=== PATIENT | female | born 1980 | race Caucasian/White ===

== ENCOUNTER → 2024-06-22 | Outpatient (CLI) | payer MEDICAID, SELFPAY ==
--- NOTE | 2024-06-22 14:00 | XR_ITS ---
Examination: Diagnostic digital mammography, unilateral, LEFT Computer aided detection 3-D breast Tomosynthesis, unilateral Date and time of exam: June 22, 2024 1334 hours INDICATIONS: Mammogram April 20, 2024 focal asymmetry inner left breast 5.1 cm from the nipple Technique: Nonmagnified MLO, CC views of the left breast have been obtained, reconstructed from 3-D Tomosynthesis images. R2 computer aided detection program utilized for evaluation of suspicious masses and/or abnormal calcifications. 3-D Tomosynthesis images obtained. Findings: The breast is heterogeneously dense, which may obscure small masses Focal asymmetry does persist inner left breast 5 cm from the nipple Impression: BI-RADS category 0: Incomplete: Need additional imaging evaluation, recommend left breast sonography follow-up
== END | disposition home or self-care (01) ==
LOC: CDIM 13:26
PROVIDERS: Referring Provider Nurse Practitioner; Visit Provider Nurse Practitioner
DX: R92.8 Other abnormal and inconclusive findings on diagnostic imaging of breast (principal)
CPT/HCPCS: 77061; 77065; G0279

== ENCOUNTER → 2024-07-05 | Outpatient (CLI) | payer MEDICAID, SELFPAY ==
--- NOTE | 2024-07-05 15:30 | XR_ITS ---
Examination: Breast ultrasound, unilateral, left complete Date and time of exam: July 05, 2024 1548 hours INDICATIONS: Left breast sonogram November 20, 2022 2:00 cyst 4 x 4 millimeter, mammogram June 22, 2024 focal asymmetry persists in the inner left breast 5 cm from the nipple Technique: Real-time alonzo scale ultrasonographic imaging performed left breast including all 4 quadrants as well as nipple retroareolar and axillary region. Findings: 2:00 cyst 7 x 7 mm No solid nodules IMPRESSION: BI-RADS Category 2: Benign findings
== END | disposition home or self-care (01) ==
PROVIDERS: PCP Nurse Practitioner; Referring Provider Nurse Practitioner; Visit Provider Nurse Practitioner
DX: R92.8 Other abnormal and inconclusive findings on diagnostic imaging of breast (principal); N60.02 Solitary cyst of left breast
CPT/HCPCS: 76641

== ENCOUNTER → 2025-01-30 | Outpatient (CLI) | payer MEDICAID, SELFPAY ==
--- NOTE | 2025-01-30 12:30 | XR_ITS ---
Examination: Retroperitoneal ultrasound, complete Technique: Multiple high resolution grayscale images of the retroperitoneum obtained, including kidneys and bladder. Exam date and time:January 30, 2025 at 1229 hours INDICATIONS: Stage III kidney disease diagnosis 3 months ago FINDINGS: Right kidney 11.6 cm renal cortex 2.3 cm Left kidney 11.4 cm cortex 2.3 cm 17 mm upper pole left renal cyst Moderate renal parenchymal scar formation No bladder mass or bladder calculi Bladder prevoid volume 876 cc postvoid Minor 9 cc IMPRESSION: Moderate bilateral renal parenchymal scar formation No hydronephrosis or renal calculi
== END | disposition home or self-care (01) ==
PROVIDERS: PCP Nurse Practitioner; Referring Provider Internal Medicine Nephrology; Visit Provider Internal Medicine Nephrology
DX: N28.89 Other specified disorders of kidney and ureter (principal)
CPT/HCPCS: 76770

== ENCOUNTER → 2025-06-06 | Outpatient (CLI) | payer MEDICAID, SELFPAY ==
--- NOTE | 2025-06-06 08:45 | XR_ITS ---
Examination: Screening digital mammography, bilateral Computer aided detection 3-D breast Tomosynthesis, bilateral Date and time of exam: 06/06/2025, 8:45 a.m. Comparisons: 06/22/2024 Indications: Screening Technique: Nonmagnified MLO, CC views of the breasts to been obtained, reconstructed from 3-D Tomosynthesis images. R2 computer aided detection program utilized for evaluation of suspicious masses and/or abnormal calcifications. 3-D Tomosynthesis images obtained. Technologist: Findings: The breasts are heterogeneously dense, which may obscure small masses. Focal asymmetry medial right breast, 7.5 cm from the nipple on the CC view. Otherwise, no evidence of abnormal masses or suspicious calcifications. Impression: Right focal asymmetry as above. Spot compression views and possible ultrasound evaluation recommended. BI-RADS category 0: Incomplete assassment; need additional imaging evaluation
== END | disposition home or self-care (01) ==
PROVIDERS: PCP Nurse Practitioner; Referring Provider Nurse Practitioner; Visit Provider Nurse Practitioner
DX: Z12.31 Encounter for screening mammogram for malignant neoplasm of breast (principal); N64.89 Other specified disorders of breast; R92.8 Other abnormal and inconclusive findings on diagnostic imaging of breast
CPT/HCPCS: 77063; 77067

== ENCOUNTER → 2025-06-27 | Outpatient (CLI) | payer MEDICAID, SELFPAY ==
--- NOTE | 2025-06-27 13:00 | XR_ITS ---
Study: Complete pelvic ultrasound. INDICATION: Family history of ovarian cancer. History of human papilloma virus. 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 40 images at 1313 hours 27 June 2025. FINDINGS: The uterus measures 8.1 x 3.2 x 3.8 cm and myometrium is unremarkable. The endometrial stripe measures 0.3 cm. There is no cul-de-sac fluid. The right ovary measures 2.8 x 1.5 x 1.9 cm and is perfused. There are no cysts or surrounding fluid. The left ovary measures 5.1 x 2.5 x 4.6 cm and is dominated by 2 cysts of 3.5 x 2.2 x 3.0 cm and 2.1 x 1.4 x 2.2 cm. The ovary is perfused. There is no surrounding fluid. IMPRESSION: 1. Normal uterus and right ovary. 2. 2 dominant cysts of the left ovary. No solid masses. 3. Consider monitoring for ovarian cancer with periodic CA125 assays in preference to ultrasound.
--- NOTE | 2025-06-27 13:00 | XR_ITS ---
Study: Abdomen ultrasound. INDICATION: Unintentional weight loss for 4 months. TECHNIQUE: Grayscale ultrasound with color flow Doppler. 79 images at 1321 hours 27 June 2025. FINDINGS: The gallbladder wall is thin and there are no contains stones or sludge. The common bile duct measures 0.3 cm. The liver measures 15.0 cm in the midclavicular line and is fatty infiltrated. Margination is smooth. There is no cyst, solid mass or ectatic duct. Portal vein flow is toward the liver. The pancreas head and body are normal in echogenicity. The head measures 1.7 cm. The tail is obscured by bowel gas. The aorta is normal in caliber. The inferior vena cava is patent. The right kidney measures 11.5 x 5.0 x 5.5 cm with a 1.8 cm cortex. The left kidney measures 10.8 x 5.2 x 4.8 cm with a 2.0 cm cortex. There is a 2 cm simple cyst in the upper pole. There are multiple nonobstructing calcifications in the kidney. The spleen measures 10.6 cm in length and is normal in echogenicity. There is no ascites. IMPRESSION: 1. Fatty liver. 2. Bosniak 1 cyst of the left upper renal pole.
== END | disposition home or self-care (01) ==
LOC: CDIM 12:39
PROVIDERS: PCP Family Medicine; Referring Provider Internal Medicine; Visit Provider Internal Medicine
DX: N83.202 Unspecified ovarian cyst, left side (principal); K76.0 Fatty (change of) liver, not elsewhere classified; N28.1 Cyst of kidney, acquired; Z80.9 Family history of malignant neoplasm, unspecified
CPT/HCPCS: 76700; 76856